=== PATIENT | male | born 1950 | race Asian ===

== ENCOUNTER 2018-05-07 07:38 | Day surgery (SDC) | payer OTHER ==
[2018-05-06 14:21] VITALS: BMI 24.9
[2018-05-07 09:45] VITALS: TEMP 97.9
[2018-05-07 10:36] VITALS: BP 123/57; PULSE 55
--- NOTE | 2018-05-08 09:42 | PATH ---
Surgical Pathology Report Patient Name: CHRISTELLE CRAIG [facility]. Rec. #: [id number] /Age/Gender: 1950 (Age: 67) / M Account: [id number] Location: [facility]-ENDOSCOPY Taken: 05/07/2018 Received: 05/07/2018 Reported: 05/08/2018 Physicians: Shelly Grere M.D. Specimen(s) Received A: BX COLON POLYP B: BX TERMINAL ILEUM C: BX CECUM D: BX CECAL POLYP Clinical History Screening, change in bowel habits, occult blood Postoperative diagnosis: Polyps, cecal AVM Final Diagnosis A. COLON, RIGHT, POLYP, POLYPECTOMY: HYPERPLASTIC POLYP. B. TERMINAL ILEUM, BIOPSY: ILEAL MUCOSA WITHOUT SIGNIFICANT PATHOLOGIC FINDINGS. C. CECUM, BIOPSY: COLONIC MUCOSA WITHOUT SIGNIFICANT PATHOLOGIC FINDINGS. D. CECUM, POLYP, POLYPECTOMY: POLYPOID COLONIC MUCOSA WITH PROMINENT LYMPHOID AGGREGATE. Electronically Signed Lilibeth Licona M.D. Gross Description A. Received in formalin, labeled "right colon polyp" is a gabriel, irregular portion of soft tissue measuring 0.5 cm. in greatest dimension. The specimen is submitted in toto in one cassette. B. Received in formalin, labeled "biopsy of terminal ileum" are 2 gabriel, irregular portions of soft tissue measuring 0.5 and 0.6 cm. in greatest dimension. The specimens are submitted in toto in one cassette. C. Received in formalin, labeled "biopsy cecum" are 2 gabriel, irregular portions of soft tissue measuring 0.4 and 0.5 cm. in greatest dimension. The specimens are submitted in toto in one cassette. D. Received in formalin, labeled "biopsy cecal polyp" are 2 gabriel, irregular portions of soft tissue measuring 0.2 and 0.3 cm. in greatest dimension. The specimens are submitted in toto in one cassette. 05/07/2018 saudi05/07/2018
== END 2018-05-07 10:33 | disposition home or self-care (01) ==
LOC: JASU-ENDO 07:38
PROVIDERS: ATTEND Internal Medicine Gastroenterology
PROC: 0DBC8ZX Excision of Ileocecal Valve, Via Natural or Artificial Opening Endoscopic, Diagnostic (ICD-10-PCS; 2018-05-07)
PROC: 0DBK8ZX Excision of Ascending Colon, Via Natural or Artificial Opening Endoscopic, Diagnostic (ICD-10-PCS; principal; 2018-05-07 08:45)
DX: Z12.11 Encounter for screening for malignant neoplasm of colon (principal); K63.5 Polyp of colon; K64.8 Other hemorrhoids; K55.20 Angiodysplasia of colon without hemorrhage
CPT/HCPCS: 87045; 87046; 87177; 87209; 88305-TC

== ENCOUNTER 2022-08-09 04:54 | Emergency (ER) | payer OTHER ==
[2022-08-09 05:39] VITALS: TEMP 98.2; BMI 26.6
[2022-08-09 05:42] LABS: BASO % 0.6 % (0-2.0); EOS % 5.8 % (0-4.5); HEMATOCRIT 45.4 % (35.4-49); HEMOGLOBIN 14.9 GM/dL (11.7-16.9); LYMPH % 31.5 % (8-40); MCH 29.6 pg (25.7-33.7); MCHC 32.9 g/dl (32.0-35.9); MEAN CELL VOLUME 89.9 fl (80-96); MEAN PLT VOLUME 9.6 fl (7.5-11.1); MONO % 8.8 % (3.8-10.2); NEUT % 53.3 % (42.8-82.8); PLATELET COUNT 156 10^3/uL (134-434); RBC 5.05 M/mm3 (4.00-5.60); RDW 13.8 % (11.9-15.9); WHITE BLOOD COUNT 8.3 K/mm3 (4.0-10.0)
[2022-08-09 06:04] LABS: CALCIUM 8.9 mg/dL (8.5-10.1)
[2022-08-09 06:05] LABS: MAGNESIUM 1.8 mg/dL (1.8-2.4)
[2022-08-09 06:06] LABS: ALBUMIN 3.5 g/dl (3.4-5.0); BLOOD UREA NITROGEN 19.3 mg/dL (7-18)
[2022-08-09 06:08] LABS: CREATININE 0.9 mg/dL (0.55-1.3)
[2022-08-09 06:10] LABS: TOT PROT 6.7 g/dl (6.4-8.2)
[2022-08-09 06:11] LABS: BILIRUBIN,TOTAL 0.7 mg/dL (0.2-1)
[2022-08-09 06:28] VITALS: BP 165/91; PULSE 70; RESP 22
== END 2022-08-09 07:04 | disposition short-term general hospital (02) ==
LOC: JER 04:54
DX: I63.9 Cerebral infarction, unspecified (principal)
CPT/HCPCS: 0241U-QW; 36415; 70450-TC; 70496-TC; 70498-TC; 71045-TC-FY; 80053; 80061; 83036; 83735; 84484; 85025; 93005; 93010; 99285-25